=== PATIENT | female | born 1980 | race African-American/Black ===

== ENCOUNTER 2016-12-11 07:06 | Emergency (ER) | payer BC ==
[~2016-12-11] VITALS: Ht 160 cm; Wt 104.3 kg
[~2016-12-11 07:06] MED LIST: B COMPLETE1 EAC1 PO; FOLIC ACID0.4 MG PO; GARLIC OIL1 EACH PO; IBUPROFEN 400400 M1 PO; IBUPROFEN 600600 M1 PO; IBUPROFEN 800800 M1 PO; LORTAB 5 MG/5001 TA1 PO; MACROBID 100 M100 M1 PO; MYLANTA TABLET1 TA1 PO; NORCO 5-325 TA1 EACH PO; PHENERGAN 25 MG25 M1 PO; PROBIOTIC1 EAC3 PO; TRAMADOL 50 MG50 MG PO; TYLENOL325 MG PO; VITAMINC500 PO
[2016-12-11] MEDS ORDERED: NAPROSYN500 MG PO (09:03)
== END 2016-12-11 09:20 | disposition home or self-care (01) ==
LOC: ER 07:06
DX: S86.812A Strain of other muscle(s) and tendon(s) at lower leg level, left leg, initial encounter (principal); Z90.49 Acquired absence of other specified parts of digestive tract; Z86.2 Personal history of diseases of the blood and blood-forming organs and certain disorders involving the immune mechanism; X58.XXXA Exposure to other specified factors, initial encounter; Y93.89 Activity, other specified; Y92.89 Other specified places as the place of occurrence of the external cause; Y99.8 Other external cause status